=== PATIENT | female | born 1950 | race Caucasian/White ===

== ENCOUNTER 2024-11-03 09:03 | Outpatient (CLI) | payer MEDICARE, BC | END 2024-11-03 09:04 | disposition home or self-care (01) | LOC: CSHMAMMO 09:03 | PROVIDERS: ATTEND Internal Medicine | DX: N64.89 Other specified disorders of breast (principal); N63.21 Unspecified lump in the left breast, upper outer quadrant | CPT/HCPCS: 76642; 77065; G0279 ==

== ENCOUNTER → 2024-11-12 | Day surgery (SDC) | payer MEDICARE, BC | LOC: CSHULT 12:30 | PROVIDERS: ATTEND Nurse Practitioner Family | PROC: 0HBU3ZX Excision of Left Breast, Percutaneous Approach, Diagnostic (ICD-10-PCS; principal; 2024-11-12) | DX: C50.412 Malignant neoplasm of upper-outer quadrant of left female breast (principal) | CPT/HCPCS: 19083; A4648; 88305; 88342; 88360 ==